=== PATIENT | female | born 1955 | race Caucasian/White ===

== ENCOUNTER 2022-01-04 15:02 | Outpatient (RCR) | payer MEDICARE, BC, SELFPAY | END 2022-07-03 23:59 | disposition home or self-care (01) | LOC: CCIC 15:02 | PROVIDERS: PCP Family Medicine; Visit Provider Internal Medicine Medical Oncology | DX: C50.911 Malignant neoplasm of unspecified site of right female breast (principal); Z17.0 Estrogen receptor positive status [ER+]; D05.82 Other specified type of carcinoma in situ of left breast | CPT/HCPCS: 99212; 99214; 99215 ==

== ENCOUNTER 2023-02-11 09:59 | Outpatient (CLI) | payer MEDICARE, BC, SELFPAY ==
--- NOTE | 2023-02-11 10:00 | CRLHL7_ITS ---
For Patients: As a result of the Century Cures Act, medical imaging exams and procedure reports are released immediately into your electronic medical record. You may view this report before your referring provider. If you have questions, please contact your health care provider. INDICATION: Spine pain. History of breast cancer. TECHNIQUE: Two views of the thoracic spine. FINDINGS: Mild thoracolumbar scoliotic curvature. The mid to lower thoracic curvature slightly convex towards the right. The upper lumbar curve is slightly convex towards the left. There is no evidence for compression fractures. No intrinsic skeletal lesion. No plain radiographic evidence for metastatic disease to the thoracic spine. IMPRESSION : Mild thoracolumbar curvature. No acute compression fracture. No plain radiographic evidence for metastatic disease to the spine. Further imaging evaluation such as with a bone scan should be based on clinical grounds. Dictated by Burton Landon MD @ 02/11/2023 11:16:19 AM (Electronically Signed)
--- NOTE | 2023-02-11 10:00 | CRLHL7_ITS ---
For Patients: As a result of the Century Cures Act, medical imaging exams and procedure reports are released immediately into your electronic medical record. You may view this report before your referring provider. If you have questions, please contact your health care provider. INDICATION: Left-sided neck tenderness. History of breast cancer. TECHNIQUE: Three views of the cervical spine. FINDINGS: Seven cervical vertebral bodies with loss of the mid to lower cervical lordosis likely partly positional. There is mild to moderate degenerative disc disease at C4 and slightly less so at C5. There are no fractures. No erosive changes. No plain radiographic evidence for metastatic disease to the cervical spine. Clear lung apices. Normal medial clavicular heads. IMPRESSION: Scattered degenerative changes of the cervical spine with moderate degenerative disc disease at C4 and slightly less so at C5. Dictated by Burton Landon MD @ 02/11/2023 11:14:33 AM (Electronically Signed)
== END 2023-02-11 10:00 | disposition home or self-care (01) ==
LOC: RAD 10:00
PROVIDERS: PCP Family Medicine; Visit Provider Physician Assistant
DX: M54.2 Cervicalgia (principal); Z85.3 Personal history of malignant neoplasm of breast
CPT/HCPCS: 72040; 72070

== ENCOUNTER 2023-05-02 11:10 | Outpatient (RCR) | payer MEDICARE, BC, SELFPAY ==
--- NOTE | 2023-01-31 15:24 | ONC.NURNOTE ---
Pt called on 01/28/23 with concerns of persistand neck pain and would like a xray as discussed in previous visit. Button Decorating Machine Operator discussed pt's symptoms with Keila Jarrett PA-C and orders written for thoracic and cervical xrays. Button Decorating Machine Operator updated pt.
== END 2023-05-17 23:59 | disposition home or self-care (01) ==
LOC: CCIC 11:10
PROVIDERS: PCP Family Medicine; Visit Provider Physician Assistant
DX: D05.82 Other specified type of carcinoma in situ of left breast (principal); C50.911 Malignant neoplasm of unspecified site of right female breast; Z17.0 Estrogen receptor positive status [ER+]; M54.2 Cervicalgia; N64.4 Mastodynia
CPT/HCPCS: 99212; 99214; 99215; G0463

== ENCOUNTER 2023-05-04 19:19 | Emergency (ER) | payer MEDICARE, BC, SELFPAY ==
[2023-05-04 19:28] VITALS: BP 154/82; PULSE 91; PULSE 99; RESP 18; TEMP 37.3; O2SAT 97; BMI 33.2
--- NOTE | 2023-05-04 19:31 | CRLHL7_ITS ---
For Patients: As a result of the Century Cures Act, medical imaging exams and procedure reports are released immediately into your electronic medical record. You may view this report before your referring provider. If you have questions, please contact your health care provider. Indication: Left upper extremity swelling and pain. Technique: Ultrasound venous duplex left upper extremity. Compression venous exam was performed using mcdonald-scale, color Doppler, and spectral Doppler imaging. Comparison: None. Findings: The left internal jugular, subclavian, and axillary veins are patent with normal waveforms. The brachial, basilic, and cephalic veins are fully compressible. No other abnormalities seen. Impression: Normal ultrasound of the left upper extremity veins. No left upper extremity deep vein thrombus identified. Dictated by Giorgio Whitehead MD @ 05/04/2023 9:15:40 PM (Electronically Signed)
--- NOTE | 2023-05-04 19:32 | ED_ITS ---
HPI - General Adult General Time Seen by Provider: 19:32 Date Seen: 05/04/23 Chief complaint: Extremity Pain/Injury, Upper Stated complaint: Ur care ref-blood clot potential Time Seen by Provider: 05/04/23 19:22 Source: patient and RN notes reviewed Mode of arrival: ambulatory Limitations: no limitations History of Present Illness HPI narrative: Patient is a 68-year-old female referred from Urgent Care for ultrasound of her left upper extremity. She had a COVID shot in her right arm, influenza on her left arm 2 days ago. Yesterday she noted that her left arm was red and swollen, was evaluated in Urgent Care. They gave her a topical steroid cream in told her to take Benadryl. She is taken 5 doses of Benadryl. The area of swelling and redness had expanded by this morning. She went back to urgent care tonight. They did do a D-dimer it was mildly elevated. She is not experiencing shortness of breath in the context of her current symptoms. She had a low-grade temp of 99? yesterday but she had also just received 2 immunizations the day prior. She has no temperature now. She notes last year when she took her flu shot that the same thing happened, was started on an antibiotic and things cleared up quickly. The urgent care did send in Keflex for her, she obviously has not had time to pick that up or start it. Related Data Home Medications Medication Instructions Recorded Confirmed [id number] 250 1 tab PO Q4-6H PRN 12/31/21 05/04/23 mg-250 mg-65 mg tablet (Excedrin Migraine) calcium carbonate 500 mg calcium 500 mg PO QDAY 12/31/21 05/04/23 (1,250 mg) tablet cholecalciferol (vitamin D3) 125 125 mcg PO QDAY 12/31/21 05/04/23 mcg (5,000 unit) tablet lisinopril 10 mg tablet 10 mg PO QDAY 11/18/22 05/04/23 omeprazole 20 mg capsule,delayed 20 mg PO .prn 11/18/22 05/04/23 release magnesium 250 mg tablet 250 mg PO .QOD 05/02/23 05/04/23 Previous Rx's Medication Instructions Recorded triamcinolone acetonide 0.1 % 1 applic topical BID 14 days #30 05/03/23 topical cream grams cephalexin 500 mg capsule 500 mg PO QID 7 days #28 caps 05/04/23 Allergies Allergy/AdvReac Type Severity Reaction Status Date / Time influenza virus vaccine qs Allergy Mild Rash Verified 05/04/23 15:26 2022- (6 mos and up) [From Fluzone Quad [id number] (PF)] Review of Systems Narrative: As per HPI. 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) ?D05.82 - Other specified type of carcinoma in situ of left breast (ICD-10) Surgical History S/P radiation therapy ?Z92.3 - Personal history of irradiation (ICD-10) Status post left breast lumpectomy (~10/16/19) ?Z98.890 - Other specified postprocedural states (ICD-10) Status post right breast lumpectomy (Unknown) ?Z98.890 - Other specified postprocedural states (ICD-10) Social History Smoking Status: Never smoker How often do you have a drink containing alcohol: never AUDIT-C Alcohol total score: 0 Non-prescribed substance use: denies use Exam Const: Vital Signs, click to edit/add: Vital Signs - 24 hr 05/04/23 19:28 05/04/23 19:28 05/04/23 20:50 Temperature 99.1 F 98.1 F Pulse Rate [Left R adial] 91 Pulse Rate [Left U lnar] 91 Pulse Rate [Pulse Oximeter] 99 84 Respiratory Rate 18 16 Blood Pressure [Ri ght Upper Arm] 154/82 H 148/79 H Pulse Oximetry 97 96 Oxygen Delivery Me thod Room Air Room Air Patient is a 68-year-old female that is alert, interactive, no apparent distress. She is ambulatory into the ED of her own accord. Face atraumatic, speaking in complete sentences come voice normal. Lungs are clear, good air entry, no wheezing or crackles. CV regular rate and rhythm, no murmur, normal S1-S2, no S3-S4. Visualization of her left upper arm shows erythema, goes into a band medially in the upper arm, does have some milder pinkish swelling in brokerage office manager coloration change medially along the elbow. It does not extend into the antecubital fossa, there is a sharp demarcation above the and cubital fossa of the erythema and normal skin. She has full range of motion of the extremity, note no areas of fluctuance or abscess. Skin feels warm, she does not seem to have any tenderness when I palpate. Documenting provider has reviewed patient's vital signs: yes Course Course ED Course: Reviewed with the patient that I can be extremely difficult to decipher between allergic reaction or localized reaction versus cellulitis. I would recommend that she start the Keflex. We will proceed with an ultrasound to rule out DVT of this extremity given the elevated D-dimer. Would recommend that she continue with the antihistamine as well. Reevaluation(s) Time of Reevaluation #1: 20:50 Reevaluation #1: Reviewed with patient that the manager commission did not see DVT. We discussed localize shot reactions, secondary cellulitis. She does not believe that she is going to take another influenza vaccine given that this has happened the last 2 years in a row. Reviewed with her that we do not definitively know if there is a component of localized reaction and/or cellulitis. She will seed cone picker the prescribed antibiotic from urgent care and continue taking it tomorrow. Vital Signs Vital signs: Initial Vital Signs Temperature 99.1 F 05/04/23 19:28 Temperature Source Temporal Artery Scan 05/04/23 19:28 Pulse Rate 99 05/04/23 19:28 Pulse Rhythm Regular 05/04/23 19:28 Pulse Strength 3+ Normal 05/04/23 19:28 Respiratory Rate 18 05/04/23 19:28 Blood Pressure 154/82 H 05/04/23 19:28 Blood Pressure Mean 106 H 05/04/23 19:28 Blood Pressure Position Sitting 05/04/23 19:28 Pulse Oximetry 97 05/04/23 19:28 Oxygen Delivery Method Room Air 05/04/23 19:28 Vital Signs Temperature 99.1 F 05/04/23 19:28 Pulse Rate 99 05/04/23 19:28 Respiratory Rate 18 05/04/23 19:28 Blood Pressure 154/82 H 05/04/23 19:28 Pulse Oximetry 97 05/04/23 19:28 Oxygen Delivery Method Room Air 05/04/23 19:28 Temperature 98.1 F 05/04/23 20:50 Pulse Rate 84 05/04/23 20:50 Respiratory Rate 16 05/04/23 20:50 Blood Pressure 148/79 H 05/04/23 20:50 Pulse Oximetry 96 05/04/23 20:50 Oxygen Delivery Method Room Air 05/04/23 20:50 Medications Administered Medications: Discontinued Medications Generic Name Dose Route Start Last Admin Trade Name Freq PRN Reason Stop Dose Admin Cephalexin HCl 500 mg 05/04/23 19:43 05/04/23 20:42 Cephalexin 500 Mg Capsule PO 05/04/23 19:44 500 mg ONCE ONE Administration Medical Decision Making Imaging Data Venous US: Attestation: I have reviewed the pertinent imaging results. Radiologist's impression: Patient: MARTI SANTOS Facility:?[facility] Patient ID:?[id number] Site Patient ID:?[id number]. Site :?[id number] Study:?US Extremity Left UEV LT-05/04/2023 8:46:31 PM Ordering Physician:Carlos Jalloh Final Report: Indication: Left upper extremity swelling and pain. Technique: Ultrasound venous duplex left upper extremity. Compression venous exam was performed using mcdonald-scale, color Doppler, and spectral Doppler imaging. Comparison: None. Findings: The left internal jugular, subclavian, and axillary veins are patent with normal waveforms. The brachial, basilic, and cephalic veins are fully compressible. No other abnormalities seen. Impression: Normal ultrasound of the left upper extremity veins. No left upper extremity deep vein thrombus identified. Dictated by Giorgio Whitehead MD @ 05/04/2023 9:15:40 PM (Electronic Signature) Critical Care Time Critical Care Time Critical Care Time: No Discharge Plan Discharge Clinical Impression: Redness and swelling of upper arm Patient Disposition: Home, Self-Care Condition: Stable Instructions: Cellulitis (ED) Additional Instructions: Continue with antibiotic as prescribed, next dose due tomorrow morning. You certainly can continue with Benadryl for antihistamine effect. Is difficult to say if this is influenza shot reaction verses component of cellulitis developing. Regardless, would have you take the antibiotic given the extension of redness. If the arm continues to have significant increase in redness and swelling, develops worsening fever pattern, do recommend re-evaluation. Handout for cellulitis given for Education purposes. Activity Level: Activity as Tolerated Prescriptions: No Action calcium carbonate 500 mg calcium (1,250 mg) tablet 500 mg PO QDAY cholecalciferol (vitamin D3) 125 mcg (5,000 unit) tablet 125 mcg PO QDAY Excedrin Migraine 250-250-65 mg tablet 1 tab PO Q4-6H PRN omeprazole 20 mg capsule,delayed release(DR/EC) 20 mg PO .prn magnesium 250 mg tablet 250 mg PO .QOD lisinopril 10 mg tablet 10 mg PO QDAY cephalexin 500 mg capsule 500 mg PO QID 7 Days Qty: 28 0RF triamcinolone acetonide 0.1 % cream 1 applic topical BID 14 Days Qty: 30 0RF Follow Up/Referrals: Suzanne Carey MD [Primary Care Provider] - Stand Alone Forms: [facility] Info Instructions
[2023-05-04] MEDS: cephALEXin 500 MG CAPSULE PO (20:42)
[2023-05-04 20:50] VITALS: BP 148/79; PULSE 84; RESP 16; TEMP 36.7; O2SAT 96
== END 2023-05-04 21:00 | disposition home or self-care (01) ==
PROVIDERS: Emergency Provider Family Medicine; PCP Family Medicine
DX: M79.89 Other specified soft tissue disorders (principal)
CPT/HCPCS: 85379; 93971; 99283; 99284; A9270

== ENCOUNTER 2023-05-17 09:52 | Outpatient (CLI) | payer MEDICARE, BC, SELFPAY ==
--- NOTE | 2023-05-17 09:45 | CRLHL7_ITS ---
For Patients: As a result of the Cures Act, medical imaging exams and procedure reports are released immediately into your electronic medical record. You may view this report before your referring provider. If you have questions, please contact your health care provider. BILATERAL DIAGNOSTIC MAMMOGRAM WITH COMPUTER-AIDED DETECTION AND TOMOSYNTHESIS 05/17/2023 CLINICAL HISTORY: RIGHT breast pain, diffuse lateral aspect, no lump. COMPARISON: 09/28/2022, 10/16/2019. TECHNIQUE: Digital BILATERAL mammogram in 4 projections. Computer-aided detection and tomosynthesis used. BREAST COMPOSITION: Almost entirely fat. FINDINGS: CC and MLO 3D mammogram images submitted. Post-treatment changes noted. No suspicious masses or architectural distortion. No adenopathy. IMPRESSION: No suspicious findings. RECOMMENDATIONS: Clinical follow-up. Routine screening mammography. BI-RADS Category 2: Benign A lay language report of this examination will be provided to the patient. Dictated by Young Bustamante MD @ 05/17/2023 11:04:55 AM DEMETRI/kalpesh DW/Dictated by: Young Bustamante MD @ 05/17/2023 11:04:00 AM (Electronically Signed)
== END 2023-05-17 09:53 | disposition home or self-care (01) ==
LOC: MAMMO 09:53
PROVIDERS: PCP Family Medicine; Visit Provider Physician Assistant
DX: N64.4 Mastodynia (principal)
CPT/HCPCS: 77066; G0279

== ENCOUNTER 2023-09-23 09:30 | Outpatient (RCR) | payer MEDICARE, BC, SELFPAY ==
--- NOTE | 2023-07-29 16:51 | OT.OPOE ---
OT Outpatient Ortho Eval OT Outpatient Ortho Eval* Start: 07/29/23 16:24 Freq: Status: Active Protocol: Document 07/29/23 16:26 LCN (Rec: 07/29/23 16:48 LCN [id number]) E-signed By Leigh Davis, OTR/L, CLT OT OP Ortho Eval Details Complexity Complexity Low Insurance Information Insurance Information Blue Cross/Blue Shield, Medicare B Outpatient History/Precautions Current Condition/Medical Diagnosis Referring Provider Uri Conner PA-C Treatment Diagnosis Fracture of distal radius L Date of Onset 05/31/23 Medical Conditions HTN,CA Other Conditions Has last L breast lumpectomy in September 2019, R also was affected. Good mammo results i 05/18/23. 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 This is pt's first ever fracture. Has had allergic reactions to infleunza vaccines this yr and 2022. Medical/Functional History Medical History Reviewed Yes Prior Level of Function/Mobility Pt lives alone locally in a 2 story home. Raised her niece and cares for her 5 y/o grand niece from [facility]. 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 Ortho Subjective Subjective Subjective Karolina Mc is an active 68 yr old female who fell backward into her L hand while pulling on a branch that was stuck, pruning a tree on . Saw Urgent care the next day and had short cast applied 06/07/23. Xray reveals acute impacted intra-articular fracture of distal radius. with bony ossicle at distal ulnar styloid. Pt had cast removed 07/07 and placed in velcro wrist cock up for the 4 weeks following. Referred to OT for supporting ROM and progression to strengthening. Pt had some tenderness at base of 5th MC head, thumb stiffness and edema after cast removed, has improved with use of elevation, brace and tubigrip. Guided to stay below 2# lifting, has been able to clip nails. Pain Assessment Pain Present Pain Present Pain Reported Location L wrist Description Tightness,Pressure,Dull, Achy, Throbbing,With Movement, Heaviness Intensity 3 Range of Motion and Strength Wrist Range of Motion and Strength Wrist Range of Motion and Strength B SH and elbow planes WNL. No MMT per recent fracture. Supination to 80 of 90, pn at end ROM of pronation (2/10 at distal ulna). WR EX to 40 of 60, WR FL to [address] to 15 of 20 ( Distal radius 2/10 pn) UD to 35 of40 ( 2/10 pn at [facility] area). 2/10 pn with gentle broadcast supervisor and pinch testing. Hand Pinch/Private Branch Exchange Repairer Strength Hand Left Private Branch Exchange Repairer Strength Position 1 (lbs) 12 Lateral Pinch Strength (lbs) 10 Right Private Branch Exchange Repairer Strength Position 1 (lbs) 52 Private Branch Exchange Repairer Strength Position 2 (lbs) 45 Lateral Pinch Strength (lbs) 15 Three Point Pinch (lbs) 10 OT Problems Problems Problems Decreased Strength,Decreased Range of Motion,Pain,Lifting, Gripping,Pinching Other Problems Opening Containers,Fasteners Patient Potential Excellent Assessment Assessment Assessment Given Karolina's L distal radius fracture, she is having some?difficulty with edema, pain, ROM and strength loss of L hand/wrist/forearm limiting daily tasks. She would benefit from skilled OT to address these areas. Occupational Therapy Treatment Plan - OP Potential Rehabilitation Potential Excellent Set Goals Goals Set with Patient Yes Goals Goals In 8 weeks, pt will demonstrate:? 1) Decreased pn to <2/10 80% of the time with sustained gripping, carrying groceries, reading books, cooking tasks and garden work. 2) I HEP for stretching, gradual strengthening and self mgmt strategies. 3) improved L broadcast supervisor strength to 40# and pinch to 12# with L wrist pain < 1/10. 4 Treatment Plan Treatment Plan Evaluation,Edema Control,Joint Mobilization,Manual Therapy, Therapeutic Exercise,Self Care /Home Management,Education Expected Frequency 1x Week Expected Duration 6-8 Weeks Expected Duration Comments 2x/week x 2 weeks and likely 1x/week x 4-6 weeks following. Home Program Home Program Home Program Initiated Home Program Specifics Gentle putty gripping in supinated, pronated and neutral positions, SROM holds in WR EX/FL supination/ pronation and UD/RD glides. Recertification Information Recertification Information Initial Certification Date 07/29/23 Recertification Due Date 10/27/23 Provider Signature Shows Agreement With POC & Medical Necessity Physician Comment/Change Comment or Changes Physician NPI Number #
--- NOTE | 2023-09-23 11:51 | OT.OPODN ---
OT Outpatient Ortho Daily Note OT Outpatient Ortho Daily Note* Start: 07/29/23 16:24 Freq: Status: Active Protocol: Document 09/23/23 11:28 LCN (Rec: 09/23/23 11:49 LCN [id number]) E-signed By Leigh Davis, OTR/L, CLT Type of Note Type of Note Type of Note Daily Note,Discharge Note,Note to MD Visit Number 4 Comments 08/22/23-- Pt cx per work mtg Insurance Information Insurance Information [employer], Medicare B Outpatient History/Precautions Current Condition/Medical Diagnosis Referring Provider Uri Conner PA-C Date of Onset 05/31/23 Medical Conditions HTN,CA Other Conditions Has last L breast lumpectomy in September 2019, R also was affected. Good mammo results i 05/18/23. 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 This is pt's first ever fracture. Has had allergic reactions to infleunza vaccines this yr and 2022. Medical/Functional History Medical History Reviewed Yes Prior Level of Function/Mobility Pt lives alone locally in a 2 story home. Raised her niece and cares for her 5 y/o grand niece from [place] often. Social History Employment Status Waiter/Waitress Formal Employed Current Occupation [employer] Retired Sub Acute occupational therapist [employer] Critical Job Demands Pull,Lift,Prolonged Standing Other Critical Job Demands trasnsfering patients Hobbies gardening, reading , travelling Fitness walking lifting weights,core. Ortho Subjective Subjective Subjective Pt really having nice recovery , full return to garden tools, shovelling, scooping compost and heavy lifting of laundry , groceries. Gets a bit stiff into flexion, but stretch ait out. Finger Waver and pinch strength, 4 point weightbearing coming along nicely. Pt agrees she is ready for d/c today. OT OP Daily Ortho Note/Assessment Therapeutic Exercise Therapeutic Exercise Minutes (minutes) 5 Therapeutic Exercise Comments REviewed hand putty exercises for extrinsic, intrinsic muscles, upgraded color on her own. Per MMT, could benefit from pronator end range strength using Red flex bar along with Supination, WR EX and WR FL, RD, UD planes and forearm mobilizations. Manual Therapy Manual Therapy Minutes (minutes) 25 Manual Therapy Comments OTR completes STM to mobilize soft tissue surrounding joint capsule,?ligament structures and muscle groups to support freedom of movement and healing of structures of L wrist, thumb, pand plam. Applied LPS of WR FL/EX, RD, UD and sup/pronation. Improved wrist flexion from 67 to 81 degrees (of 80), springy end feel., robina when compbined with ulnar deviation . Total Occupational Therapy Time Occupational Therapy Minutes 30 Home Program Home Program Home Program Revised,Compliant Home Program Specifics 09/05/23-- Red flex bar for WR E, F ,RD, UD and sup/pronation . Intrinsic putty ex/peach. Table top push ups. Gentle putty gripping in supinated, pronated and neutral positions, SROM holds in WR EX/FL supination/ pronation and UD/RD glides. Range of Motion and Strength Wrist Range of Motion and Strength Wrist Range of Motion and Strength B SH and elbow planes WNL. No MMT per recent fracture. Supination to 80 of 90, pn at end ROM of pronation (2/10 at distal ulna). WR EX to 40 of 60, WR FL to [address] to 15 of 20 ( Distal radius 2/10 pn) UD to 35 of40 ( 2/10 pn at TFCC area). 2/10 pn with gentle research software engineer and pinch testing. Goniometric Comments Goniometric Comments Goniometric Comments 09/23/23-- IMproved WR EX to 80 and WR FL to 67 AROM and 81 AAROM. 08/01/23--WE improved to 55 and WR FL to 50. Hand Pinch/Finger Waver Strength Comments Comments 09/23/23-- Pos 1 research software engineer to 48# R and 40# L. Lobo pinch 15# R and 13# L. 3 pt pinch 14# R and 12# L. 09/05/23-- Finger Waver improved to 35# L and 52 # R. Lobo pinch 11#, 3 pt is 10# and RF/SF 3 pt is 8# L and 10# R. WR FL to 75 of 80, WF to 70 of [address] 20, UD 40. OT Problems Problems Problems Decreased Strength,Decreased Range of Motion,Pain,Lifting, Gripping,Pinching Other Problems Opening Containers,Fasteners Patient Potential Excellent Assessment Assessment Assessment Pt ready for D/C from OT, HEP upgraded. Occupational Therapy Treatment Plan - OP Potential Rehabilitation Potential Excellent Set Goals Goals Set with Patient Yes Goals Goals After 4 visits Karolina LUQUE demonstrates:? 1) Decreased pn to <2/10 80% of the time with sustained gripping, carrying groceries, reading books, cooking tasks and garden work. PROGRESS 09/23/23-- GOAL MET 2) I HEP for stretching, gradual strengthening and self mgmt strategies. PROGRESS 09/23/23-- GOAL MET 3) improved L research software engineer strength to 40# and pinch to 12# with L wrist pain < 1/10. PROGRESS 09/23/23-- GOAL MET Treatment Plan Treatment Plan Evaluation,Edema Control,Joint Mobilization,Manual Therapy, Therapeutic Exercise,Self Care /Home Management,Education Expected Frequency 1x Week Expected Duration 6-8 Weeks Expected Duration Comments 2x/week x 2 weeks and likely 1x/week x 4-6 weeks following. Occupational Therapy Billing Units Treatment Minutes Timed Treatment Minutes 30 Total Treatment Minutes 30 Billing Units Manual Therapy 2 Discharge Note Discharge Note Discharge Summary See progress section above. Date of First Visit for Therapy 07/29/23 Date of Last Visit for Therapy 09/23/23 Initial Primary Functional Limitations/ Karolinacassidy Mc is an active Concerns 68 yr old female who fell backward into her L hand while pulling on a branch that was stuck, pruning a tree on . Saw Urgent care the next day and had short cast applied 06/07/23. Xray reveals acute impacted intra-articular fracture of distal radius. with bony ossicle at distal ulnar styloid. Pt had cast removed 07/07 and placed in velcro wrist cock up for the 4 weeks following. Referred to OT for supporting ROM and progression to strengthening. Pt had some tenderness at base of 5th MC head, thumb stiffness and edema after cast removed, has improved with use of elevation, brace and tubigrip. Guided to stay below 2# lifting, has been able to clip nails. Interventions Provided During Treatment Evaluation,Edema Control,Joint Mobilization,Manual Therapy, Therapeutic Exercise,Self Care /Home Management,Education Recommendations/Reason for Discharge Met All Therapy Goals
== END 2023-09-23 13:26 | disposition home or self-care (01) ==
PROVIDERS: PCP Family Medicine; Visit Provider Physician Assistant Surgical
DX: S52.502A Unspecified fracture of the lower end of left radius, initial encounter for closed fracture (principal); Z51.89 Encounter for other specified aftercare
CPT/HCPCS: 97110; 97140; 97165; 97535; X5282

== ENCOUNTER 2024-03-30 12:08 | Outpatient (CLI) | payer MEDICARE, BC, SELFPAY ==
--- OUTSIDE RECORDS SUMMARY | 2024-03-30 12:12 | XMS_ITS | Clinical Summary ---
Author Organization [facility] Address [place], [place] [address] Care Team Providers Care Hydraulic Controls Technician Name Role Phone Suzanne Carey MD Primary Care Provider Allergies Active Allergy Reactions Criticality Noted Date Comments Influenza Virus Vaccines Irritation At Inj Site 01/02/2024 Large local reaction Medications Medication Sig Dispensed Refills Start Date End Date Status aspirin-acetaminoph en-caffeine (EXCEDRIN EX STR) 250-250-65 mg Take 1 Tab by mouth. Active omeprazole (PRILOSEC) 10 mg capsuleIndications: Chronic GERD Take 1 capsule by mouth once daily before a meal. Takes as needed 0 03/03/2020 Active cholecalciferol, Vitamin D3, (Vitamin D-3) 5,000 unit tab tablet Take 1 Tablet (5,000 units) by mouth once daily. 0 05/15/2021 Active magnesium 250 mg tab Take 1 Tablet (250 mg) by mouth once daily. 0 10/01/2022 Active calcium carbonate (CALTRATE) 600 mg calcium (1,500 mg) tablet Take 1 Tablet (600 mg) by mouth one time if needed. Takes 1 tablet every other day 180 Tablet 3 10/01/2022 Active cyanocobalamin (Vitamin B-12) 1,000 mcg tablet Take 1,000 mcg by mouth once every other day if needed. Active lisinopriL (PRINIVIL; ZESTRIL) 10 mg tabletIndications:H TN (hypertension) Take 1 Tablet (10 mg) by mouth once daily. 90 Tablet 3 01/02/2024 Active polyethylene glycol-electrolyte (GOLYTELY) 236-22.74-6.74 -5.86 gram suspensionIndicatio ns:Adenomatous polyp of colon, unspecified part of colon Drink 2 liters the day before colonoscopy and 2 liters 6 hours before colonoscopy appointment 4000 mL 03/19/2024 Active Active Problems Problem Noted Date Diagnosed Date Adenomatous colon polyp 03/12/2020 Overview (03/12/2020): Colonoscopy 02/2020 multiple polyps, repeat in 3 years, propofol sedation Intraductal carcinoma in situ of left breast Elevated blood pressure read ing without diagnosis of hypertension 09/09/2014 GERD (gastroesophageal reflux disease) Resolved Problems Problem Noted Date Diagnosed Date Resolved Date Malignant neoplasm of upper- outer quadrant of female breast 11/09/2019 05/15/2021 Invasive ductal carcinoma of breast 10/04/2014 05/15/2021 Encounters Date Type Department Care Team Description 03/26/2024 10:20 AM FINANCE VICE PRESIDENT Preop Visit [facility] [address] [place] [address] Suzanne Carey MD Pre-Op Exam (Colonoscopy Dr. Woodruff [facility] 03/30/24); Immunization/Injectio n 03/26/2024 Travel 01/23/2024 12:45 PM CDT Orders Only [address] [place] [address] Lab, [facility] Lab 01/23/2024 Travel 01/02/2024 1:00 PM CDT Office Visit [facility] [address] [facility] [place] [address] Suzanne Carey MD Medicare ANNUAL (subsequent) Visit (68 yr/Right hip pain started in September. Started where it hurt after a long day of walking. That has gotten better but now having pain at night and pain will go down her leg./Had a influenza vaccine and had a reaction from it. Apr 2023/Had a fall in May) 01/02/2024 Telephone [facility] [address] [place] [address] Antwon Woodruff MD Screening 01/02/2024 Travel from Last 3 Months Immunizations Name Administration Dates Next Due COVID-19 VACCINE SPIKEVAX (M ODERNA 50MCG/0.5ML) 12YO+ PFS 03/26/2024 COVID-19 vaccine (Moderna 10 0mcg/0.5mL) PF, MDV 03/11/2021,05/21/2020,04/23/2020 COVID-19 vaccine (Moderna 50 mcg/0.5mL) 12YO+ BIVALENT PF, MDV 02/02/2022 Influenza Virus, Unspecified 02/12/2020,02/07/20 19,02/24/2018 Influenza, High-dose Quadriv alent Inactivated 02/17/2022 Influenza, IIV4 05/02/2023 Influenza, IIV4 (=>6mos) MDV 03/05/2021 Pneumococcal Conj 20-valent (Prevnar 20) 023 Pneumococcal Poly,23-Valent (Pneumovax) 05/15/19 22 Tdap 01/10/2018,11/21/2008 Zoster (Shingrix-RZV, recombinant) 01/28/2020, Zoster (Zostavax-ZVL, live) 03/08/2016 Family History Medical History Relation Name Comments Heart Disease Father Cancer-colon Maternal Grandfather dx age 70's Anesthesia Problem No Family History Blood Disease No Family History Cancer-breast No Family History Cancer-ovarian No Family History Clotting disorder No Family History Relation Name Status Comments Father Maternal Grandfather Social History Tobacco Use Types Packs/Day Years Used Date Smoking Tobacco: Never Smokeless Tobacco: Never Tobacco Cessation:Counseling Given: Yes Comments:second hand exposure when young Alcohol Use Standard Drinks/Week Comments Yes 0 (1 standard drink = 0.6 oz pur e alcohol) PHQ-2 Answer Date Recorded PHQ-2 TOTAL SCORE 0 01/02/2024 Social Connections Answer Date Recorded Do you often feel lonely or isolated from those around you? 0 01/02/2024 Financial Resource Strain Answer Date R ecorded Difficulty of Paying Living Expenses 3 01/02/2024 Difficulty of Paying Living Expenses Not on file 01/02/2024 Food Insecurity Answer Date Recorded Do you worry your food will run out before you are able to buy more? 1 01/02/2024 Transportation Needs Answer Date Record ed Does lack of transportation keep you from medica l appointments? 1 01/02/2024 Does lack of transportation keep you from work, meetings or getting things that you need? 1 01/02/2024 Housing Stability Answer Date Recorded What is your housing situation today? 1 01/02/2024 Sex and Gender Information Value Date Recorded Sex Assigned at Not on file Gender Identity Not on file Sexual Orientation Not on file Obstetrics History Para Term AB IAB SAB Ectopic Multiple Livin g Live Births 0 0 0 0 0 0 0 0 0 0 Last Filed Vital Signs Vital Sign Reading Time Taken Comments Blood Pressure 133/86 03/26/2024 10:34 AM FINANCE VICE PRESIDENT Pulse 86 03/26/2024 10:34 AM FINANCE VICE PRESIDENT Temperature 36.7 C (98.1 F) 10/29/2019 2:50 PM CDT Respiratory Rate 18 11/22/2014 3:51 PM CDT Oxygen Saturation 98% 03/26/2024 10:34 AM FINANCE VICE PRESIDENT Inhaled Oxygen Concentration - - Weight 76.7 kg (169 lb 3.2 oz) 03/26/2024 10:34 AM FINANCE VICE PRESIDENT Height 150.5 cm (4' 11.25) 03/26/2024 10:34 AM FINANCE VICE PRESIDENT Body Mass Index 33.89 03/26/2024 10:34 AM FINANCE VICE PRESIDENT Plan of Treatment Upcoming Encounters Date Type Department Care Team (Late st Contact Info) Description 03/30/2024 12:15 PM FINANCE VICE PRESIDENT Office Visit [facility] [address] [place] [address] Antwon Woodruff MD [facility] [address] Arrived Health Maintenance Due Date Last Done Comments Colonoscopy through age 75 03/10/202303/30, 03/10/2020, 03/10/2020, Additional history exists Influenza for age 65+ 12/25/2023 05/02/2023 , 02/17/2022, 03/05/2021, Additional history exists Mammogram for age 45-75 05/17/2024 05/17/19 24, 09/28/2022, 05/11/2021, Additional history exists Depression screening for age 12+ 01/01/2025 01/02/2024, 01/02/2024, 10/01/2022, Additional history exists Medicare Wellness for age 65+ 01/02/2025, 10/01/2022, 05/15/2021 BMI (ht and wt on same day) for age 18+ 03/26/2025 03/26/2024, 01/02/2024, 10/01/2022, Additional history exists Tetanus booster 01/11/2028 01/10/2018, 11/21/2008 Lipids for age 45-75 01/22/2029 01/23/2024, 09/21/2022, 05/19/2021, Additional history exists Tdap Completed 01/10/2018, 11/21/2008 Hepatitis C screening for ag e 18-79 Completed 01/01/2019 Zoster (shingles) series for age 50+ Completed 01/28/2020, 05/07/2019, 03/08/2016 DEXA/DXA scan for age 65+ Completed 05/19/2021, 09/2014 Pneumococcal series for age 65+ Completed , 05/15/2021 COVID-19 vaccine series Completed 03/26/20, 05/02/2023, 02/02/2022, Additional history exists Goals Goal Patient Goal Type Associated Problems Recent Progress Patient-Stated? Author BLOOD PRESSURE - MAINTAINS BP less than 140/90 Blood Pressure Patience Colby MD Procedures Procedure Name Priority Date/Time Associated Diagnosis Comments COLONOSCOPY SCREENING Routine 03/30/2024 8:05 AM FINANCE VICE PRESIDENT Screening for colon cancer BASIC METABOLIC PANEL Routine 03/26/2024 11:27 AM FINANCE VICE PRESIDENT HTN (hypertension) LIPID PANEL W REFLEX MEASURED LDL Routine 01/23/2024 12:37 PM CDT Lipid screening BASIC METABOLIC PANEL Routine 01/23/2024 12:37 PM CDT HTN (hypertension) SCAN-MAMMOGRAPHY REPORT 05/17/2023 12:00 AM FINANCE VICE PRESIDENT XR DXA BONE DENSITY 2 SITES AXIAL Routine 05/19/2021 9:24 AM FINANCE VICE PRESIDENT Menopause ANTI HCV Routine 01/01/2019 12:25 PM CDT Need for hepatitis C screening test from Last 3 Months or Most Recently Relevant to Health Maintenance Results * BASIC METABOLIC PANEL (03/26/2024 11:27 AM FINANCE VICE PRESIDENT) Only the most recent of2 resultswithin the time period is included. GLUCOSE 88 65 - 99 mg/dL [facility] Comment: Fasting reference interval UREA NITROGEN (BUN) 11 7 - 25 mg/dL [facility] CREATININE 0.55 0.50 - 1.05 mg/dL [facility] EGFR 99 > OR = 60 mL/min/1. 73m2 [facility] BUN/CREATININE RATIO SEE NOTE: 6 - 22 (calc) [facility] Comment: Not Reported: BUN and Creatinine are within reference range. SODIUM 138 135 - 146 mmol/L [facility] POTASSIUM 4.3 3.5 - 5.3 mmol/L [facility] CHLORIDE 102 98 - 110 mmol/L [facility] CARBON DIOXIDE 27 20 - 32 mmol/L [facility] ELECTROLYTE BALANCE 9 7 - 17 mmol/L (calc) [facility] CALCIUM 9.1 8.6 - 10.4 mg/dL [facility] Blood BLOOD SPECIMEN / Unknown 03/26/2024 11:27 AM FINANCE VICE PRESIDENT 03/26/2024 11:28 AM FINANCE VICE PRESIDENT Suzanne Carey MD CHEMISTRY [facility] [address] [place] [address], [facility] [address] [place] [address] * (ABNORMAL) LIPID PANEL W REFLEX MEASURED LDL (01/23/2024 12:37 PM CDT) CHOLESTEROL, TOTAL 245(H) <200 mg/dL [facility] HDL CHOLESTEROL 39(L) > OR = 50 mg/dL [facility] TRIGLYCERIDES 268(H) <150 mg/dL [facility] Comment: If a non-fasting specimen was collected, consider repeat triglyceride testing on a fasting specimen if clinically indicated. Gianluca et al. J. of Clin. Lipidol. 2015;9:129-169. LDL-CHOLESTEROL 162(H) mg/dL (calc) [facility] Comment: Reference range: <100 Desirable range <100 mg/dL for primary prevention; <70 mg/dL for patients with CHD or diabetic patients with > or = 2 CHD risk factors. LDL-C is now calculated using the Caro calculation, which is a validated novel method providing better accuracy than the Friedewald equation in the estimation of LDL-C. Antwon SEN et al. SHENA. 2013;310(19): 5591-3303 (http://education.Jibo/faq/VND062) CHOL/HDLC RATIO 6.3(H) <5.0 (calc) [facility] NON HDL CHOLESTEROL 206(H) <130 mg/dL (calc) [facility] Comment: For patients with diabetes plus 1 major ASCVD risk factor, treating to a non-HDL-C goal of <100 mg/dL (LDL-C of <70 mg/dL) is considered a therapeutic option. Blood BLOOD SPECIMEN / Unknown 01/23/2024 12:37 PM CDT 01/23/2024 12:37 PM CDT Suzanne Carey MD CHEMISTRY [facility] [address] [place] [address], [facility] [address] [place] [address] * SCAN-MAMMOGRAPHY REPORT (05/17/2023 12:00 AM FINANCE VICE PRESIDENT) Anatomical Region Laterality Modality Other Scanner OTHER * (ABNORMAL) XR DXA BONE DENSITY 2 SITES AXIAL [23802.1] (05/19/2021 9:24 AM FINANCE VICE PRESIDENT) Anatomical Region Laterality Modality Spine, HIPS, HIPL, HIPR Other Impressions 05/25/2021 9:46 AM FINANCE VICE PRESIDENT Osteopenia. RECOMMENDATIONS: The National Osteoporosis Foundation recommends pharmacologic treatment for patients with T-scores of -2.5 or less, patients with prior history of fragility fractures, or patients with 10-year probability of greater than 3% at hips or greater than 20% of suffering major osteoporotic fractures. Recommend continued optimization of calcium and vitamin D intake through dietary means and/or supplementation and regular exercise. Repeat scan recommended in 3-5 years. Gauri Lynne PA-C Narrative 05/25/2021 9:46 AM FINANCE VICE PRESIDENT For Patients: Results are automatically released to your [facility]Anyt[facility] DD[facility] account once available, in compliance with federal regulations. This means that you may see your results before your provider has had a chance to review them. Please allow 2-3 business days for your provider to comment on the results. XR DXA Bone Mineral Density (BMD) EXAM LOCATION: [address] [address] PATIENT NAME: Karolina Mc DATE OF : 1955 EXAM DATE: 05/19/2021 REQUESTING PROVIDER: Suzanne Carey MD GENDER AT : female HEIGHT: 4' 11.5 (05/15/2021) WEIGHT: 178 lb (05/15/2021) MENOPAUSAL STATUS: Postmenopausal RACE/ETHNICITY: White RISK FACTORS: Cancer Treatment and White Race CURRENT MEDICATION FOR BONE LOSS: NONE INDICATION: Menopause COMPARISON DATE(S): 2014 DXA scans are compared to prior studies for a patient only when the two (or more) studies were performed on the same scanner. It is not possible to compare data generated on one scanner to data from another because there are not standards in DXA equipment. This applies even if the two scanners are made by the same press machine feeder. PROCEDURE: Dual-energy x-ray absorptiometry performed with routine technique. Reporting is completed in the form of a T-score. The T-score represents the standard deviation from peak bone mass based on young healthy adult. A Z-score is used for diagnosis in premenopausal women, and for men under the age of 50. FINDINGS: RESULT LUMBAR SPINE L1 - L4 BMD: 1.174 g/cm2 T-Score: - 0.2 Z-Score: + 0.9 Change from prior in 2014: Increase 0.7%. RESULTS FEMUR Left femoral neck BMD: 0.747 g/cm2 T-Score: - 2.1 Z-Score: - 0.9 Change from prior in 2014: Decrease 5.4%. Right femoral neck BMD: 0.750 g/cm2 T-Score: - 2.1 Z-Score: - 0.9 Change from prior in 2014: Decrease 3.4%. Left hip BMD: 0.874 g/cm2 T-Score: - 1.1 Z-Score: - 0.2 Change from prior in 2014: Decrease 1.9%. Right hip BMD: 0.864 g/cm2 T-Score: - 1.1 Z-Score: - 0.3 Change from prior in 2014: Decrease 2.8%. WHO criteria: Normal: T-score at or above -1 SD Osteopenia: T-score between -1.1 and -2.4 SD Osteoporosis: T-score at or below -2.5 SD FRAX RISK CALCULATION (USED FOR OSTEOPENIA ONLY): 10-year probability of major osteoporotic fracture: 10.6%. 10-year probability of hip fracture: 1.7%. Suzanne Carey MD DEXA * COLONOSCOPY SCREENING [[id number]] (03/10/2020 12:00 PM FINANCE VICE PRESIDENT) Suzanne Carey MD GI PROCEDURE OR D * ANTI HCV (01/01/2019 12:25 PM CDT) HEPATITIS C ANTIBODY Non-React jeremiah Non-React jeremiah 01/02/2019 3:28 PM CDT [facility] Comment:Antibodies to HCV no t detected; does not exclude the possibility of exposure to HCV. Blood BLOOD SPECIMEN / Unknown Venipuncture / Unknown 01/01/2019 12:25 PM CDT 01/02/2019 9:23 AM CDT Suzanne Carey MD [facility] [address] [place] [address], from Last 3 Months or Most Recently Relevant to Health Maintenance Insurance Payer Benefit Plan / Group Subscriber ID Effective Dates Phone Address Type MEDICARE PART B - HB USE ONLY MEDICARE PART B HB ONLY [id number] 2020-Presen t ATTN: CLAIMS [address] [place] [address] MEDICARE - PB USE ONLY MEDICARE PB ONLY [id number] 2020-Presen t ATTN: CLAIMS [address] [place] [address] [facility] [id number] 2023-Presen t [address] [place] [address] Care Teams Hydraulic Controls Technician Relationship Specialty Start Date End Date Suzanne Carey MD [address] [place] [address] PCP - General Family Practice 01/28/20
--- NOTE | 2024-03-30 13:32 | W.ANESCHARGE ---
Anesthesia Charges Start Date/Time Anesthesia Start Date: 03/30/24 Anesthesia Start Time: 13:09 Stop Date/Time Anesthesia Stop Date: 03/30/24 Anesthesia Stop Time: 13:30
--- NOTE | 2024-03-30 13:53 | W.ANESCHARGE ---
Anesthesia Charges Start Date/Time Anesthesia Start Date: 03/30/24 Anesthesia Start Time: 13:09 Stop Date/Time Anesthesia Stop Date: 03/30/24 Anesthesia Stop Time: 13:30
== END 2024-03-30 12:09 | disposition home or self-care (01) ==
LOC: OP CLINIC 12:10
PROVIDERS: PCP Family Medicine; Visit Provider Internal Medicine Gastroenterology
DX: D12.5 Benign neoplasm of sigmoid colon (principal); Z86.0101 Personal history of adenomatous and serrated colon polyps
CPT/HCPCS: 00811; 45380; 88305; J2704